=== PATIENT | female | born 1975 | race Two or more races ===

== ENCOUNTER 2016-11-23 02:32 | Emergency (ER) | payer OTHER ==
[~2016-11-23] VITALS: Ht 160 cm; Wt 99.8 kg
[2016-11-23] MEDS ORDERED: Norco 10mg/325mg tab ORAL ONE (03:15)
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
[2016-11-23 03:29] VITALS: BP 142/85
== END 2016-11-23 04:00 | disposition home or self-care (01) ==
LOC: EMR 03:17
DX: M79.642 Pain in left hand (principal); R60.0 Localized edema
CPT/HCPCS: 29125; 99283